=== PATIENT | female | born 1945 | race Caucasian/White ===

== ENCOUNTER 2019-02-23 22:10 | Emergency (ER) | payer MEDICARE, OTHER ==
[2019-02-23] MEDS ORDERED: Ondansetron PF 4 MG/2 ML Vial ONE ×2 (22:57→23:56)
[2019-02-23] MEDS ORDERED: Ketorolac Tromethamine 30 MG/ML VIAL ONE (22:57)
[2019-02-23] MEDS ORDERED: Methocarbamol 1 GM in Sodium Chloride 0.9% 100 ML IVPB SCH (23:00)
--- NOTE | 2019-02-23 23:15 | CT ---
CT Lumbar Spine WO Con History: [Pain] Comparison: None. Findings: Dense calcifications of the aorta. Moderate diverticular disease of the sigmoid colon. Mild bilateral paraspinal muscle atrophy, symmetric. No acute fracture or malalignment. Narrowing of the interspinous space at L1/L2 and L2/L3 with endpla te remodeling and sclerosis. There is bilateral neural foraminal narrowing with encroachment upon the nerve roots at L2-L5. This i s due to a combination of posterior disc osteophyte complexes and hypertrophic facet changes. Transverse processes are intact. Impression: Multilevel advanced degenerative changes with neural foraminal narrowing and nerve root a butment due to combination of disc osteophyte complexes and hypertrophic facet changes. Nonemergent MRI may be beneficial if clinically warranted. There is also likely a component of spinal canal narro wing at the L3/L4 level, narrowed to approximately 5 mm.
[2019-02-24] MEDS ORDERED: Dexamethasone 10 MG/ML VIAL ONE (00:16)
[2019-02-24] MEDS ORDERED: Morphine 2 MG/ML SYRINGE ONE (00:17)
== END 2019-02-24 01:29 | disposition home or self-care (01) ==
LOC: ERS 22:10
DX: M54.16 Radiculopathy, lumbar region (principal); M62.830 Muscle spasm of back; M19.90 Unspecified osteoarthritis, unspecified site; I10 Essential (primary) hypertension; E78.00 Pure hypercholesterolemia, unspecified; Z85.3 Personal history of malignant neoplasm of breast; Z79.899 Other long term (current) drug therapy
CPT/HCPCS: 72131; 96365; 96375; 96376; J1100; J1885; J2270; J2405; J2800; J3490

== ENCOUNTER 2019-07-21 14:18 | Outpatient (CLI) | payer MEDICARE, OTHER ==
--- NOTE | 2019-07-21 14:36 | RAD ---
XR Lumbar Spine 2 Or 3 View: 07/21/2019 12:00 AM CLINICAL INDICATION: Low back pain COMPARISON: None. FINDINGS: Fracture:No acute compression fracture Arthropathy:Moderate multilevel degenerative change throughout the lumbar spine. No significant abnormal translational motion. Incidental findings:Atherosclerosis IMPRESSION: 1. Moderate multilevel degenerative change throughout the lumbar spine. 2. No significant abnormal translational motion.
== END 2019-07-21 14:19 | disposition home or self-care (01) ==
LOC: TBSIIMAG 14:18
PROVIDERS: ATTEND Neurological Surgery
DX: M54.5 Low back pain (principal); M47.816 Spondylosis without myelopathy or radiculopathy, lumbar region
CPT/HCPCS: 72100

== ENCOUNTER 2019-09-21 07:01 | Outpatient (CLI) | payer MEDICARE, OTHER ==
[2019-09-21 11:41] LABS: Hemoglobin 11.7 g/dL (12.0-16.0); Mean Corpuscular HGB CONC 33.7 g/dL (32.0-36.0); Mean Corpuscular Volume 91.9 fL (78.0-98.0); Mean Platelet Volume 7.2 fL (7.4-10.4); Platelet Count 166 thou/uL (130-400); Red Blood Cell (RBC) Count 3.77 mill/uL (4.20-5.40); White Blood Cell (WBC) Count 8.8 thou/uL (4.8-10.8)
[2019-09-21 11:46] LABS: INR-International Normal Ratio 1.1; PTT 29.3 SEC (22.9-36.1); Prothrombin Time 13.8 SEC (12.0-14.7)
[2019-09-21 12:23] LABS: Anion Gap 15 mmol/L (10-20); BUN (Urea Nitrogen) 29 mg/dL (9.8-20.1); Calc. Creatinine Clearance 0 mL/min (70-130); Calcium 9.5 mg/dL (7.8-10.44); Carbon Dioxide 18 mmol/L (23-31); Chloride 110 mmol/L (98-107); Estimated GFR-MDRD 41; Glucose 108 mg/dL (83-110); Potassium 4.7 mmol/L (3.5-5.1); Sodium 138 mmol/L (136-145)
== END 2019-09-21 07:02 | disposition home or self-care (01) ==
LOC: LABBT 07:01
PROVIDERS: ATTEND Neurological Surgery
DX: Z01.812 Encounter for preprocedural laboratory examination (principal); M51.36 Other intervertebral disc degeneration, lumbar region; M48.061 Spinal stenosis, lumbar region without neurogenic claudication
CPT/HCPCS: 80048; 85027; 85610; 85730

== ENCOUNTER 2019-09-22 05:41 | Day surgery (SDC) | payer MEDICARE, OTHER ==
[2019-09-21 09:30] VITALS: BMI 27.4
--- NOTE | 2019-09-21 19:11 | HP ---
REASON FOR ADMISSION: 1. Presenting for lumbar spine surgery. 2. Back and radiating right leg pain. HISTORY OF PRESENT ILLNESS: Lenora Garcia is a very pleasant 74-year-old woman, who has had 5 to 6 years of pain in the back down the leg. She has had physical therapy in the past that helped for some time and injections more recently that temporarily gave her relief. Nothing has made the pain go away on a permanent basis. When she stands for any length of time, there is low back and radiating right leg pain. There is significant improvement if she leans over a shopping cart or sits down. MR imaging suggests significant lumbar stenosis, especially at L3-4. She is here for surgical intervention. PAST MEDICAL HISTORY: Type 2 diabetes, hyperlipidemia, hypertension, aortic regurgitation (asymptomatic, echo done 1 year ago), chronic kidney disease, breast cancer. PAST SURGICAL HISTORY: Hysterectomy at age 29, ankle surgery at age 49, lumpectomy right breast at age 50, ADMISSION MEDICATIONS: 1. Atenolol 100 mg tablet daily. 2. Calcium with vitamin D 500 mg/200 units one tablet twice a day. 3. Cyclobenzaprine 10 mg t.i.d. p.r.n. spasm. 4. Doxazosin 4 mg one p.o. q.h.s. 5. Glucosamine and chondroitin sulfate one by mouth 3 times daily. 6. Krill oil one daily. 7. Lisinopril 10 mg one daily. 8. Melatonin one daily. 9. Rosuvastatin 40 mg one tablet daily. 10. Turmeric one tablet daily. ALLERGIES: NO KNOWN DRUG ALLERGIES. SOCIAL HISTORY: The patient is a nonsmoker. She drinks alcohol occasionally. She does not use illicit drugs. FAMILY HISTORY: Mother from Alzheimer's. No family history of anesthesia complications. REVIEW OF SYMPTOMS: Otherwise, negative. PHYSICAL EXAMINATION: VITAL SIGNS: Ms. Garcia is 64 inches tall, weight is 165. GENERAL: In the Neurosurgery office, she is awake and alert. Cranial nerves are working well. EXTREMITIES: There is no lower extremity weakness in the iliopsoas, quadriceps, hamstrings, anterior tib, EHL, or gastrocnemius. Sensation is in touch to all her dermatomes in both lower extremities. Reflexes are diminished at both knees, absent at the ankles. There is no clonus or Babinski. LABORATORY DATA: Admission findings and test results: MRI scan of the lumbar spine shows some rather severe lumbar stenosis at L3-4, some mild left-sided lateral recess disease at L5-S1 and some mild L2-3 disease. Flexion-extension views did not show instability. IMPRESSION: Symptomatic neurogenic claudication with symptoms on the right greater than left side from L3-4 stenosis. A long discussion with Ms. Garcia about surgical intervention and she would like to proceed. Informed Consent: I discussed indications, risks, benefits, alternatives, and expected outcomes from surgery. The risks we discussed included, but were not limited to, bleeding, infection, CSF leak, nerve damage, paralysis, incontinence, wheelchair dependence, cardiopulmonary complications of anesthesia, need for future surgery, and . She understands risks and wants to proceed. We will take Ms. Garcia to the operating room for decompression. Job ID: [id number]
[2019-09-22] MEDS ORDERED: Bupivacaine PF 0.5% 30 ML VIAL ONE (06:12)
[2019-09-22] MEDS ORDERED: Sodium Chloride 0.9% 10 ML ONE (06:12)
[2019-09-22] MEDS ORDERED: Thrombin 5000 UNITS/5 ML VIAL ONE (06:12)
[2019-09-22] MEDS ORDERED: Fentanyl 100 MCG/2 ML VIAL ONE (06:15)
[2019-09-22] MEDS ORDERED: Acetaminophen 650 MG Suppository PR PRN (06:35)
[2019-09-22] MEDS ORDERED: Bisacodyl 10 MG SUPP PR PRN (06:35)
[2019-09-22] MEDS ORDERED: Morphine 2 MG/ML SYRINGE SLOW IVP PRN (06:35)
[2019-09-22] MEDS ORDERED: Cyclobenzaprine 10 MG TAB PO PRN (06:35)
[2019-09-22] MEDS ORDERED: Ondansetron PF 4 MG/2 ML Vial IVP PRN (06:35)
[2019-09-22] MEDS ORDERED: diphenhydrAMINE 50 MG/ML VIAL IVP PRN (06:35)
[2019-09-22] MEDS ORDERED: HYDROcodone/Acetaminophen 7.5/325 mg Tablet PO PRN ×2 (06:35)
[2019-09-22] MEDS ORDERED: Acetaminophen/Codeine 30-300mg Tablet PO PRN ×2 (06:35)
[2019-09-22] MEDS ORDERED: tiZANidine HCl 4 MG TAB PO PRN (06:35)
[2019-09-22] MEDS ORDERED: Promethazine HCl 12.5 MG SUPP PR PRN (06:35)
[2019-09-22] MEDS ORDERED: diphenhydrAMINE 25 MG CAP PO PRN (06:35)
[2019-09-22] MEDS ORDERED: Acetaminophen 325 MG TAB PO PRN (06:35)
[2019-09-22] MEDS ORDERED: Promethazine HCl 25 MG/ML VIAL IM PRN (06:35)
[2019-09-22] MEDS ORDERED: Promethazine 25 MG TAB PO PRN (06:35)
[2019-09-22] MEDS ORDERED: Morphine 4 MG/ML VIAL SLOW IVP PRN (06:35)
[2019-09-22] MEDS ORDERED: traMADol HCl 50 MG TAB PO PRN ×2 (06:35)
[2019-09-22] MEDS ORDERED: Scopolamine 1.5 mg/72 hour Patch ONE (06:42)
[2019-09-22] MEDS ORDERED: Scopolamine 1.5 mg/72 hour Patch TD SCH (06:45)
[2019-09-22] MEDS ORDERED: Sodium Chloride 0.9% 1,000 ML IV SCH (06:45)
[2019-09-22] MEDS ORDERED: PHENYLEPHRINE-NS 100 MCG/ML 10 ML SYRINGE ONE ×2 (08:18→14:38)
--- NOTE | 2019-09-22 09:04 | OP ---
DATE OF PROCEDURE: 09/22/[address]: None. PREOPERATIVE INDICATION: Treat pain and prevent neurological deterioration. PREOPERATIVE DIAGNOSIS: Lumbar spinal stenosis with severe neurogenic claudication. POSTOPERATIVE DIAGNOSIS: Lumbar spinal stenosis with severe neurogenic claudication. PROCEDURES PERFORMED: Decompressive laminectomy, medial facetectomy, foraminotomy, L3-L4. PREOPERATIVE MEDICATION: Ancef 2 g IV. DRAIN NUMBER: Zero. DRAIN TYPE: None, DESCRIPTION OF PROCEDURE: The patient was brought to the operating room. General endotracheal anesthesia was induced. The patient was positioned prone on the operating table with her chest and hips supported by gel-filled chest rolls. A lateral fluoro radiograph was used to plan our incision. The lumbar skin was sterilely prepped and draped. We opened a midline incision with a 10 blade knife and controlled bleeding with bipolar cautery. We used monopolar cautery to dissect through subcutaneous tissues to the thoracodorsal fascia. We incised the fascia in the midline and reflected the paraspinal muscles off the spinous process and lamina of L3 and the top of L4. A self-retaining retractor was placed and a lateral fluoro radiograph confirmed the levels upon which we were operating. We then removed the spinous process of L3 and the superior portion of L4. Using Kerrison rongeur, we fashioned a laminectomy. There was wide enough that we entered the lateral to the thecal sac on both sides. We extended our laminectomy from the L3 pedicles to the L4 pedicles. At the L3-L4 interspace, we undermined the lateral recesses with Kerrison rongeurs, removing bone spurs until the lateral recess was well decompressed. We performed foraminotomies over the exiting L3 nerve roots as well as the traversing and exiting L4 nerve roots. With the decompression secured, we turned our attention to hemostasis. We waxed the bone edges. We controlled the epidural bleeding with gentle bipolar cautery. We irrigated with bacitracin irrigation. Due to the diabetes, we treated the wound with vancomycin powder. We closed in anatomical layers and we applied a sterile dressing. This was a clean case, no contamination. Job ID: [id number]
[2019-09-22] MEDS ORDERED: HYDROcodone/Acetaminophen 5/325 mg Tablet ONE (12:14)
[2019-09-22] MEDS ORDERED: CEFAZOLIN 2 GM in Premix Bag 1 BAG IVPB SCH (14:00)
[2019-09-22] MEDS ORDERED: Glycopyrrolate 0.2 MG/ML 5 ML SYRINGE ONE (14:38)
[2019-09-22] MEDS ORDERED: Dexamethasone 20 MG/5 ML VIAL ONE (14:38)
[2019-09-22] MEDS ORDERED: ePHEDrine/0.9% NaCl/PF SYRINGE 50 mg/10 ml ONE (14:38)
[2019-09-22] MEDS ORDERED: diphenhydrAMINE 50 MG/ML VIAL ONE (14:38)
[2019-09-22] MEDS ORDERED: Ondansetron PF 4 MG/2 ML Vial ONE (14:38)
[2019-09-22] MEDS ORDERED: PROPOFOL 200 MG/20 ML VIAL ONE (14:38)
[2019-09-22] MEDS ORDERED: Rocuronium Bromide 10 MG/ML (10ML VIAL) ONE (14:38)
[2019-09-22] MEDS ORDERED: Lidocaine 1% PF 5 ML VIAL ONE (14:38)
== END 2019-09-22 14:25 | disposition home or self-care (01) ==
LOC: SDC 05:41
PROVIDERS: ATTEND Neurological Surgery
PROC: 00NY0ZZ Release Lumbar Spinal Cord, Open Approach (ICD-10-PCS; principal; 2019-09-22)
DX: M48.062 Spinal stenosis, lumbar region with neurogenic claudication (principal); E78.5 Hyperlipidemia, unspecified; I12.9 Hypertensive chronic kidney disease with stage 1 through stage 4 chronic kidney disease, or unspecified chronic kidney disease; E11.22 Type 2 diabetes mellitus with diabetic chronic kidney disease; N18.9 Chronic kidney disease, unspecified; Z79.899 Other long term (current) drug therapy
CPT/HCPCS: 76000; J0690; J1100; J1200; J2001; J2405; J2704; J3010; J3370; J3490; S0020

== ENCOUNTER 2021-04-28 09:45 | Outpatient (CLI) | payer MEDICARE, OTHER | END 2021-04-28 09:46 | disposition home or self-care (01) | LOC: BICRAD 09:45 | PROVIDERS: ATTEND Family Medicine | DX: M25.551 Pain in right hip (principal); M16.11 Unilateral primary osteoarthritis, right hip ==

== ENCOUNTER 2021-08-03 13:38 | Outpatient (CLI) | payer MEDICARE, OTHER ==
[2021-08-03 14:31] LABS: #Basophils 0.1 10x3/uL (0.0-0.2); #Eosinphils 0.2 10x3/uL (0.0-0.5); #Monocytes 0.4 10x3/uL (0.0-1.1); #Neutrophils 5.9 10x3/uL (1.5-8.4); %Basophils 0.8 % (0.0-2.0); %Eosinophils 2.6 % (0.0-6.0); %Lymphocytes 22.5 % (18.0-47.0); %Monocytes 4.8 % (0.0-10.0); %Neutrophils 68.9 % (40.0-75.0); Hemoglobin 11.4 g/dL (12.0-15.5); Mean Corpuscular HGB CONC 32.9 g/dL (32.0-36.0); Mean Corpuscular Hemoglobin 29.7 pg (27.0-33.0); Mean Corpuscular Volume 90.1 fl (81.6-98.3); Mean Platelet Volume 9.3 fl (7.4-10.4); Platelet Count 161 10x3/uL (150-450); RBC Distribution Width 13.2 % (11.5-14.5); Red Blood Cell (RBC) Count 3.84 10x6/uL (3.90-5.03); White Blood Cell (WBC) Count 8.5 10x3/uL (3.5-10.5)
[2021-08-03 14:38] LABS: Prothrombin Time 11.1 sec (9.5-12.1)
[2021-08-03 14:42] LABS: Anion Gap 13 mmol/L (10-20); BUN (Urea Nitrogen) 24 mg/dL (9.8-20.1); Calc. Creatinine Clearance 0 mL/min (70-130); Carbon Dioxide 21 mmol/L (23-31); Chloride 109 mmol/L (98-107); Glucose 107 mg/dL (83-110); Potassium 4.1 mmol/L (3.5-5.1); Sodium 139 mmol/L (136-145)
[2021-08-03 14:45] LABS: Bilirubin Neg (Negative); Blood, Urine 50 (Negative); Clarity Clear (Clear); Glucose, Urine (Dipstick) Normal (Negative); Ketone, Urine Negative (Negative); Leukocyte Negative (Negative); Nitrite Negative (Negative); Protein, Urine (Dipstick) 30 mg/dl (Neg-Trace); Specific Gravity, Urine 1.005 (1.002-1.036); Urobilinogen Normal mg/dL (Less than 2); pH, Urine 6.5 (5.0-9.0)
[2021-08-03 15:01] LABS: Bacteria/HPF 1+ HPF (None Seen); RBC/HPF 0-3 HPF (0-3); Squamous Epithelial 0-3 HPF (0-3); WBC/HPF 0-3 HPF (0-3)
[2021-08-04 01:06] LABS: SARS-CoV-2 PCR by NAA Not Detected (NotDetected)
== END 2021-08-03 13:39 | disposition home or self-care (01) ==
LOC: LABBT 13:38
PROVIDERS: ATTEND Orthopaedic Surgery
DX: Z01.818 Encounter for other preprocedural examination (principal); M16.11 Unilateral primary osteoarthritis, right hip; Z20.822 Contact with and (suspected) exposure to COVID-19
CPT/HCPCS: 80048; 85025; 85610; 87081; 93005; U0003; U0005; 81003; 81015; 93010

== ENCOUNTER 2021-08-08 07:50 | Day surgery (SDC) | payer MEDICARE, OTHER ==
[2021-08-07 11:56] VITALS: BMI 25.7
[2021-08-08] MEDS ORDERED: ceFAZolin 2 GM/DEX 5% 100 ML BAG ONE (08:03)
[2021-08-08] MEDS ORDERED: Sodium Chloride 0.9% 100 ML ONE (08:04)
[2021-08-08] MEDS ORDERED: Tranexamic Acid 1,000 MG/10 ML VIAL ONE (08:04)
[2021-08-08] MEDS ORDERED: Vancomycin 1 GM/200 ML BAG ONE (08:04)
[2021-08-08] MEDS ORDERED: Midazolam HCl 2 mg/2 ml Vial ONE (08:20)
[2021-08-08] MEDS ORDERED: Fentanyl 100 MCG/2 ML VIAL ONE ×2 (08:20→08:57)
[2021-08-08] MEDS ORDERED: Bupivacaine PF 0.5% 30 ML VIAL ONE (08:49)
[2021-08-08] MEDS ORDERED: Propofol 1,000 MG/100 ML VIAL IV ONE (08:57)
[2021-08-08] MEDS ORDERED: Lidocaine 1% PF 5 ML VIAL ONE (09:11)
[2021-08-08] MEDS ORDERED: Dexamethasone 20 MG/5 ML VIAL ONE (09:11)
[2021-08-08] MEDS ORDERED: Ondansetron PF 4 MG/2 ML Vial ONE (09:11)
[2021-08-08] MEDS ORDERED: Bupivacaine HCl 0.5%/Epinephrine 1:200,000/PF 30 ml Vial ONE (09:11)
[2021-08-08] MEDS ORDERED: PHENYLEPHRINE-NS 100 MCG/ML 10 ML SYRINGE ONE (09:11)
[2021-08-08] MEDS ORDERED: EPINEPHrine 1 MG/10 ML Abboject SYRINGE ONE (09:11)
[2021-08-08] MEDS ORDERED: HYDROcodone/Acetaminophen 5/325 mg Tablet ONE (13:58)
== END 2021-08-08 15:37 | disposition home or self-care (01) ==
LOC: SDC 07:50
PROVIDERS: ATTEND Orthopaedic Surgery
PROC: 0SR904A Replacement of Right Hip Joint with Ceramic on Polyethylene Synthetic Substitute, Uncemented, Open Approach (ICD-10-PCS; principal; 2021-08-08)
PROC: 3E0T3BZ Introduction of Anesthetic Agent into Peripheral Nerves and Plexi, Percutaneous Approach (ICD-10-PCS; 2021-08-08)
DX: M16.11 Unilateral primary osteoarthritis, right hip (principal); I10 Essential (primary) hypertension; E78.5 Hyperlipidemia, unspecified; Z85.3 Personal history of malignant neoplasm of breast; Z79.899 Other long term (current) drug therapy
CPT/HCPCS: J0171; J1100; J2250; J2405; J2704; J3010; J3370; J3490; S0020